=== PATIENT | male | born 1950 | race Caucasian/White ===

== ENCOUNTER → 2024-08-14 | Outpatient (CLI) | payer MEDICARE ==
[2024-08-14 11:05] LABS: BASO # 0.02 K/mm3 (0.02-0.10); EOS # 0.09 K/mm3 (0.04-0.40); EOS % 2.9 % (0.0-4.0); HEMATOCRIT 46.7 % (42.0-52.0); HEMOGLOBIN 14.2 g/dL (13.5-18.0); LYMPH# 0.99 K/mm3 (1.50-4.00); MEAN CELL VOLUME 86 fl (78-100); MEAN CORPUSCULAR HEMOGLOBIN 26 pg (27-31); MEAN CORPUSCULAR HGB CONC 30 g/dL (33-37); MEAN PLATELET VOLUME 8.7 fl (7.4-10.4); NEU # 1.84 K/mm3 (1.40-6.50); PLATELET COUNT 105 K/mm3 (130-400); RED BLOOD COUNT 5.42 M/mm3 (4.20-5.60); RED CELL DISTRIBUTION WIDTH 15.6 % (11.5-14.5); WHITE BLOOD COUNT 3.1 K/mm3 (4.8-10.8)
[2024-08-14 11:11] LABS: CALCIUM 9.1 mg/dL (8.3-10.5)
[2024-08-14 11:13] LABS: TOTAL PROTEIN 6.7 g/dL (6.2-8.1)
[2024-08-14 11:14] LABS: TOTAL BILIRUBIN 0.5 mg/dL (0.2-1.2)
== END ==
LOC: LAB 10:47
PROVIDERS: Internal Medicine
DX: C18.0 Malignant neoplasm of cecum (principal)

== ENCOUNTER → 2024-08-25 | Outpatient (CLI) | payer MEDICARE ==
[2024-08-25 11:13] LABS: HEMATOCRIT 41.9 % (42.0-52.0); HEMOGLOBIN 13.1 g/dL (13.5-18.0); MEAN CELL VOLUME 86 fl (78-100); MEAN CORPUSCULAR HEMOGLOBIN 27 pg (27-31); MEAN CORPUSCULAR HGB CONC 31 g/dL (33-37); PLATELET COUNT 128 K/mm3 (130-400); RED BLOOD COUNT 4.88 M/mm3 (4.20-5.60); RED CELL DISTRIBUTION WIDTH 16.3 % (11.5-14.5); WHITE BLOOD COUNT 2.2 K/mm3 (4.8-10.8)
[2024-08-25 11:42] LABS: ALBUMIN 3.9 g/dL (3.4-4.8)
[2024-08-25 11:43] LABS: CALCIUM 8.7 mg/dL (8.3-10.5)
[2024-08-25 11:44] LABS: TOTAL PROTEIN 6.7 g/dL (6.2-8.1)
[2024-08-25 11:46] LABS: TOTAL BILIRUBIN 0.4 mg/dL (0.2-1.2)
[2024-08-25 11:59] LABS: LYMPHOCYTE 49 % (20-51); MONOCYTE 9 % (3-10); NEUTROPHILS 39 % (42-75)
== END ==
LOC: LAB 10:51
PROVIDERS: Internal Medicine
DX: C18.0 Malignant neoplasm of cecum (principal)

== ENCOUNTER → 2024-09-08 | Outpatient (CLI) | payer MEDICARE ==
[2024-09-08 13:16] LABS: BASO # 0.03 K/mm3 (0.02-0.10); EOS # 0.07 K/mm3 (0.04-0.40); EOS % 2.4 % (0.0-4.0); HEMATOCRIT 42.2 % (42.0-52.0); HEMOGLOBIN 13.3 g/dL (13.5-18.0); LYMPH# 0.97 K/mm3 (1.50-4.00); MEAN CELL VOLUME 86 fl (78-100); MEAN CORPUSCULAR HEMOGLOBIN 27 pg (27-31); MEAN CORPUSCULAR HGB CONC 32 g/dL (33-37); MONO # 0.39 K/mm3 (0.20-0.80); NEU # 1.44 K/mm3 (1.40-6.50); PLATELET COUNT 108 K/mm3 (130-400); RED BLOOD COUNT 4.93 M/mm3 (4.20-5.60); RED CELL DISTRIBUTION WIDTH 18.8 % (11.5-14.5); WHITE BLOOD COUNT 2.9 K/mm3 (4.8-10.8)
== END ==
LOC: LAB 12:58
PROVIDERS: Internal Medicine
DX: C18.0 Malignant neoplasm of cecum (principal)

== ENCOUNTER → 2024-09-13 | Outpatient (CLI) | payer MEDICARE ==
[2024-09-13 10:28] LABS: ALBUMIN 3.8 g/dL (3.4-4.8)
[2024-09-13 10:29] LABS: CALCIUM 9.2 mg/dL (8.3-10.5)
[2024-09-13 10:31] LABS: TOTAL PROTEIN 6.7 g/dL (6.2-8.1)
[2024-09-13 10:32] LABS: TOTAL BILIRUBIN 0.4 mg/dL (0.2-1.2)
== END ==
LOC: LAB 09:51
PROVIDERS: Internal Medicine
DX: C18.0 Malignant neoplasm of cecum (principal)

== ENCOUNTER → 2024-10-06 | Outpatient (CLI) | payer MEDICARE ==
[2024-10-06 09:54] LABS: BASO # 0.03 K/mm3 (0.02-0.10); EOS # 0.07 K/mm3 (0.04-0.40); EOS % 3.2 % (0.0-4.0); HEMATOCRIT 40.4 % (42.0-52.0); HEMOGLOBIN 13.3 g/dL (13.5-18.0); LYMPH# 0.87 K/mm3 (1.50-4.00); MEAN CELL VOLUME 87 fl (78-100); MEAN CORPUSCULAR HEMOGLOBIN 29 pg (27-31); MEAN CORPUSCULAR HGB CONC 33 g/dL (33-37); MEAN PLATELET VOLUME 9.1 fl (7.4-10.4); MONO # 0.23 K/mm3 (0.20-0.80); RED BLOOD COUNT 4.62 M/mm3 (4.20-5.60); WHITE BLOOD COUNT 2.2 K/mm3 (4.8-10.8)
[2024-10-06 10:01] LABS: ALBUMIN 3.7 g/dL (3.4-4.8)
[2024-10-06 10:04] LABS: TOTAL PROTEIN 6.6 g/dL (6.2-8.1)
[2024-10-06 10:06] LABS: TOTAL BILIRUBIN 0.5 mg/dL (0.2-1.2)
[2024-10-06 10:16] LABS: PLATELET COUNT 77 K/mm3 (130-400); RED CELL DISTRIBUTION WIDTH 22.1 % (11.5-14.5)
== END ==
LOC: LAB 09:38
PROVIDERS: Internal Medicine
DX: C18.0 Malignant neoplasm of cecum (principal)

== ENCOUNTER → 2024-10-25 | Outpatient (CLI) | payer MEDICARE ==
[2024-10-25 09:20] LABS: HEMATOCRIT 38.1 % (42.0-52.0); HEMOGLOBIN 12.3 g/dL (13.5-18.0); MEAN CELL VOLUME 91 fl (78-100); MEAN CORPUSCULAR HEMOGLOBIN 30 pg (27-31); MEAN CORPUSCULAR HGB CONC 32 g/dL (33-37); MEAN PLATELET VOLUME 8.9 fl (7.4-10.4); PLATELET COUNT 94 K/mm3 (130-400); RED BLOOD COUNT 4.17 M/mm3 (4.20-5.60); RED CELL DISTRIBUTION WIDTH 23.3 % (11.5-14.5); WHITE BLOOD COUNT 2.3 K/mm3 (4.8-10.8)
[2024-10-25 09:24] LABS: ALBUMIN 3.4 g/dL (3.4-4.8)
[2024-10-25 09:27] LABS: TOTAL PROTEIN 6.3 g/dL (6.2-8.1)
[2024-10-25 09:46] LABS: TOTAL BILIRUBIN 0.5 mg/dL (0.2-1.2)
[2024-10-25 10:03] LABS: LYMPHOCYTE 50 % (20-51); MONOCYTE 16 % (3-10); NEUTROPHILS 34 % (42-75)
== END ==
LOC: LAB 08:51
PROVIDERS: Internal Medicine
DX: C18.0 Malignant neoplasm of cecum (principal)

== ENCOUNTER → 2024-10-30 | Outpatient (CLI) | payer MEDICARE ==
[2024-10-30 09:01] LABS: HEMATOCRIT 39.3 % (42.0-52.0); HEMOGLOBIN 12.7 g/dL (13.5-18.0); MEAN CELL VOLUME 93 fl (78-100); MEAN CORPUSCULAR HEMOGLOBIN 30 pg (27-31); MEAN CORPUSCULAR HGB CONC 32 g/dL (33-37); MEAN PLATELET VOLUME 8.9 fl (7.4-10.4); PLATELET COUNT 146 K/mm3 (130-400); RED BLOOD COUNT 4.22 M/mm3 (4.20-5.60); RED CELL DISTRIBUTION WIDTH 23.6 % (11.5-14.5); WHITE BLOOD COUNT 2.5 K/mm3 (4.8-10.8)
[2024-10-30 09:06] LABS: ALBUMIN 3.4 g/dL (3.4-4.8)
[2024-10-30 09:08] LABS: CALCIUM 8.6 mg/dL (8.3-10.5)
[2024-10-30 09:09] LABS: TOTAL PROTEIN 6.5 g/dL (6.2-8.1)
[2024-10-30 09:11] LABS: TOTAL BILIRUBIN 0.5 mg/dL (0.2-1.2)
[2024-10-30 10:14] LABS: LYMPHOCYTE 48 % (20-51); MONOCYTE 24 % (3-10); NEUTROPHILS 28 % (42-75)
== END ==
LOC: LAB 08:49
PROVIDERS: Internal Medicine
DX: C18.0 Malignant neoplasm of cecum (principal)

== ENCOUNTER → 2024-11-01 | Outpatient (CLI) | payer MEDICARE ==
[2024-11-01 08:04] LABS: BASO # 0.04 K/mm3 (0.02-0.10); EOS # 0.07 K/mm3 (0.04-0.40); EOS % 0.7 % (0.0-4.0); HEMATOCRIT 40.6 % (42.0-52.0); HEMOGLOBIN 12.9 g/dL (13.5-18.0); LYMPH# 1.57 K/mm3 (1.50-4.00); MEAN CELL VOLUME 95 fl (78-100); MEAN CORPUSCULAR HEMOGLOBIN 30 pg (27-31); MEAN CORPUSCULAR HGB CONC 32 g/dL (33-37); MONO # 1.07 K/mm3 (0.20-0.80); NEU # 7.54 K/mm3 (1.40-6.50); PLATELET COUNT 139 K/mm3 (130-400); RED BLOOD COUNT 4.29 M/mm3 (4.20-5.60); RED CELL DISTRIBUTION WIDTH 24.2 % (11.5-14.5); WHITE BLOOD COUNT 10.5 K/mm3 (4.8-10.8)
== END ==
LOC: LAB 07:54
PROVIDERS: Internal Medicine
DX: C18.0 Malignant neoplasm of cecum (principal)

== ENCOUNTER → 2024-11-10 | Outpatient (CLI) | payer MEDICARE ==
[2024-11-10 15:29] LABS: BASO # 0.03 K/mm3 (0.02-0.10); EOS # 0.02 K/mm3 (0.04-0.40); EOS % 0.6 % (0.0-4.0); HEMATOCRIT 36.7 % (42.0-52.0); HEMOGLOBIN 11.9 g/dL (13.5-18.0); LYMPH# 0.97 K/mm3 (1.50-4.00); MEAN CELL VOLUME 95 fl (78-100); MEAN CORPUSCULAR HEMOGLOBIN 31 pg (27-31); MEAN CORPUSCULAR HGB CONC 32 g/dL (33-37); MONO # 0.28 K/mm3 (0.20-0.80); NEU # 1.96 K/mm3 (1.40-6.50); PLATELET COUNT 61 K/mm3 (130-400); RED BLOOD COUNT 3.86 M/mm3 (4.20-5.60); RED CELL DISTRIBUTION WIDTH 20.3 % (11.5-14.5); WHITE BLOOD COUNT 3.3 K/mm3 (4.8-10.8)
== END ==
LOC: LAB 15:11
PROVIDERS: Internal Medicine
DX: C18.0 Malignant neoplasm of cecum (principal)